=== PATIENT | male | born 1970 | race Caucasian/White ===

== ENCOUNTER 2024-03-21 22:43 | Emergency (ER) | payer SELFPAY ==
[2024-03-21] MEDS: Ketorolac 30 MG/ML SDV IM ONE (23:41)
[2024-03-21] MEDS: Acetaminophen 500 MG Tab PO ONE (23:42)
[2024-03-21] MEDS: Lidocaine 4% 1 each Patch TOP ONE (23:42)
== END 2024-03-22 01:16 | disposition home or self-care (01) ==
LOC: MW.ED 22:43
DX: S20.211A Contusion of right front wall of thorax, initial encounter (principal); W19.XXXA Unspecified fall, initial encounter
CPT/HCPCS: 71250; 93005; 96372; 99284; A9270; J1885; 93010